=== PATIENT | male | born 1995 | race Caucasian/White ===

== ENCOUNTER 2016-11-25 17:09 | Emergency (ER) | payer OTHER ==
[~2016-11-25] VITALS: Ht 180.3 cm; Wt 86.4 kg
[2016-11-25 17:09] VITALS: BP 146/71
[2016-11-25] MEDS ORDERED: MUCI600T37 PO (18:17)
[2016-11-25] MEDS ORDERED: AUGM875T28 PO (18:17)
== END 2016-11-25 21:59 | disposition home or self-care (01) ==
LOC: M ED 17:09
DX: J00 Acute nasopharyngitis [common cold] (principal)

== ENCOUNTER 2017-12-12 17:26 | Emergency (ER) | payer OTHER ==
[2017-12-12 18:46] LABS: BASO # 0.1 10^3/uL (0.0-0.2); BASO % 1.1 % (0.0-1.0); EOS # 0.4 10^3/uL (0.0-0.50); EOS % 4.2 % (0.0-3.0); HEMATOCRIT 48.6 % (42.0-52.0); HEMOGLOBIN 17.1 g/dl (13.5-17.5); IMMATURE GRANULOCYTE % 0.2 % (0-3.0); LYMPH # 2.7 10^3/uL (1.5-6.5); LYMPH % 31.5 % (24.0-44.0); MEAN CORPUSCULAR HGB CONC 35.2 g/dl (32.0-36.5); MEAN CORPUSCULAR VOLUME 88.2 fl (80.0-96.0); MONO # 0.7 10^3/uL (0.0-0.8); MONO % 7.6 % (0.0-5.0); NEUTROPHILS # 4.7 10^3/uL (1.8-7.7); NEUTROPHILS % 55.4 % (36.0-66.0); PLATELET COUNT, AUTOMATED 280 10^3/uL (150-450); RED BLOOD COUNT 5.51 10^6/uL (4.30-6.10); RED CELL DISTRIBUTION WIDTH 11.9 % (11.5-14.5); WHITE BLOOD COUNT 8.5 10^3/uL (4.0-10.0)
[2017-12-12] MEDS: METOCLOPRAMIDE INJ 10MG/2ML VIAL (J2765) IV (18:53)
[2017-12-12] MEDS: NS 1,000 ML IV (18:53)
[2017-12-12] MEDS: KETOROLAC 30 MG/ML VIAL (J1885) IV (19:00)
[2017-12-12 19:06] LABS: ANION GAP 11 MEQ/L (8-16); BLOOD UREA NITROGEN 13 MG/DL (7-18); CALCIUM LEVEL 7.8 MG/DL (8.5-10.1); CARBON DIOXIDE LEVEL 21 MEQ/L (21-32); CHLORIDE LEVEL 111 MEQ/L (98-107); CREATININE FOR GFR 1.27 MG/DL (0.70-1.30); GLOMERULAR FILTRATION RATE > 60.0 (>60); GLUCOSE, FASTING 89 MG/DL (70-100); POTASSIUM SERUM 3.4 MEQ/L (3.5-5.1); SODIUM LEVEL 143 MEQ/L (136-145)
[2017-12-12 19:16] LABS: ERYTHROCYTE SEDIMENTATION RATE 1 mm/hr (0-15)
[2017-12-12] MEDS: methylPREDNISolone INJ 125 MG/2 ML VIAL (J2930) IV (20:11)
[2017-12-12] MEDS: ACETAMINOPHEN 325 MG TAB PO (20:11)
[2017-12-12] MEDS: ALBUTEROL SULFATE 2.5 MG/0.5 ML INH NEB SOLN INH (20:15)
== END 2017-12-12 21:53 | disposition home or self-care (01) ==
LOC: M ED 17:26
DX: R51 Headache (principal); J98.01 Acute bronchospasm; F41.9 Anxiety disorder, unspecified; F32.9 Major depressive disorder, single episode, unspecified; Z87.09 Personal history of other diseases of the respiratory system; Z82.0 Family history of epilepsy and other diseases of the nervous system; Z79.899 Other long term (current) drug therapy
CPT/HCPCS: J1885